=== PATIENT | female | born 1995 | race Caucasian/White ===

== ENCOUNTER 2017-12-03 23:31 | Emergency (ER) | payer OTHER ==
[2017-12-03 23:39] VITALS: BP 149/86; PULSE 50; TEMP 98.6; BMI 25.2
[2017-12-03] MEDS ORDERED: SODIUM CHLORIDE 1,000 ML IV STA (23:57)
[2017-12-03] MEDS ORDERED: PANTOPRAZOLE SODIUM 40 MG VIAL IVPUSH ONE (23:57)
--- NOTE | 2017-12-04 00:05 | PDOC ---
History of Present Illness - General Chief Complaint: Pain Stated Complaint: ABD PAIN Time Seen by Provider: 12/03/17 23:47 History Source: Patient Exam Limitations: No Limitations - History of Present Illness Travel History: No Initial Comments: 12/04/17 00:00 22yo Female patient with no significant past medical history presents to ED c/o abdominal pain. Patient states symptoms began 4-5 days ago and is located epigastric that radiates to her upper back. She denies vomiting but report nausea and retching. Associated decrease appetite. LNMP: 1 week ago. She denies any other complaints at this time. Timing/Duration: reports: getting worse Quality: reports: sharpness, other ("comes in waves") Abdominal Pain Onset Location: reports: epigastric. denies: RUQ, LUQ, RLQ, LLQ , periumbilical, suprapubic, generalized abdomen, flank, unknown, other Pain Radiation: reports: back. denies: no radiation, RUQ, LUQ, RLQ, LLQ, epigastric, periumbilical, flank, groin, scapula, shoulder, chest, other Activities at Onset: reports: no specific activity Treatment Prior to Arrive: worse with: analgesics, antacids, cold pack, heat, laxative, enema, other Past History - Travel Traveled outside of the country in the last 30 days: No Close contact w/someone who was outside of country & ill: No - Past Medical History Allergies/Adverse Reactions: Allergies Allergy/AdvReac Type Severity Reaction Status Date / Time No Known Allergies Allergy Verified 12/03/17 23:36 Home Medications: Ambulatory Orders Metronidazole [Flagyl -] 500 mg PO BID #14 tablet 12/04/17 Oxycodone HCl/Acetaminophen [Percocet 5-325 mg Tablet] 1 tab PO Q6H PRN #8 tablet MDD 4 tabs 12/04/17 Ranitidine HCl 300 mg PO DAILY #14 capsule 12/04/17 - Suicide/Smoking/Psychosocial Hx Smoking History: Current every day smoker Number of Cigarettes Smoked Daily: 2 Information on smoking cessation initiated: No Abd/GI Specific PMHX - Complaint Specific PMHX Colitis: No Diverticulitis: No Gall Bladder Disease: No GERD: No Hepatitis: No Irritable Bowel Synd (IBS): No Pancreatitis: No GI Ulcer Disease: No Review of Systems - Review of Systems Able to Perform ROS?: Yes Is the patient limited [place] proficient: No Constitutional: No: Chills, Fever, Weakness Respiratory: No: Cough, Shortness of Breath, Wheezing, Productive cough Cardiac (ROS): No: Chest Pain ABD/GI: Yes: Nausea, Poor Appetite, Abdominal cramping. No: Blood Streaked Bowels, Diarrhea, Poor Fluid Intake, Vomiting : No: Burning, Dysuria, Flank Pain, Hematuria Musculoskeletal: Yes: Back Pain All Other Systems: Reviewed and Negative *Physical Exam - Vital Signs Last Vital Signs Temp Pulse Resp BP Pulse Ox 98.6 F 50 L 18 149/86 99 12/03/17 23:36 12/03/17 23:36 12/03/17 23:36 12/03/17 23:36 12/03/17 23:36 - Physical Exam General Appearance: Yes: Nourished, Appropriately Dressed. No: Apparent Distress, Mild Distress, Moderate Distress, Severe Distress Neck: positive: Trachea midline, Normal Thyroid, Supple. negative: Lymphadenopathy (R), Lymphadenopathy (L) Respiratory/Chest: positive: Lungs Clear, Normal Breath Sounds. negative: Chest Tender, Respiratory Distress, Accessory Muscle Use, Labored Respiration, Rapid RR, Rhonchi, Stridor, Wheezing Cardiovascular: positive: Regular Rhythm, Regular Rate Gastrointestinal/Abdominal: positive: Soft, Decreased BS. negative: Normal Bowel Sounds, Tender, Flat, Pulsatile Mass, Increased Bowel Sounds, Distended, Guarding, Rebound, Tenderness Musculoskeletal: positive: Normal Inspection. negative: CVA Tenderness, Decreased Range of Motion, Vertebral Tenderness Extremity: positive: Normal Capillary Refill, Normal Inspection, Normal Range of Motion. negative: Pedal Edema, Swelling, Calf Tenderness, Erythema Integumentary: positive: Normal Color, Dry, Warm Neurologic: positive: gear shaper II-XII NML intact, Fully Oriented, Alert, Normal Mood/ Affect, Normal Response, Motor Strength 5/5 ED Treatment Course - LABORATORY CBC & Chemistry Diagram: 12/04/17 00:33 12/04/17 00:33 - RADIOLOGY Radiology Studies Ordered: Category Date Time Status GALLBLADDER US [US] Stat Ultrasound 12/03/17 23:57 Ordered Medical Decision Making - Medical Decision Making 12/04/17 03:18 WBC- 10.3 Ultrasound of GB- Normal CT-ABD/Pelvis- WNL ??? Infection. Plan: d/c to home on flagyl and 2 days of pain control. f/u with PCP and GI specialist. *DC/Admit/Observation/Transfer Diagnosis at time of Disposition: Enteritis - Discharge Dispostion Disposition: HOME Condition at time of disposition: Stable Admit: No - Prescriptions Prescriptions: Metronidazole [Flagyl -] 500 mg PO BID #14 tablet Oxycodone HCl/Acetaminophen [Percocet 5-325 mg Tablet] 1 tab PO Q6H PRN #8 tablet MDD 4 tabs PRN Reason: Severe Pain Ranitidine HCl 300 mg PO DAILY #14 capsule - Referrals Referrals: Fco Kasper MD [Staff Physician] - - Patient Instructions Printed Discharge Instructions: Inflammatory Bowel Disease Additional Instructions: Follow up with Dr. Kasper (Gastroenterology) regarding todays visit. Take medications as prescribed with food. Do not drive, drink alcohol, or operate heavy machinery while taking Percocet. Drink plenty water. Return if your symptoms worsen or any concerns for further evaluation. You must call Dr. Kasper to schedule your own appointment. Print Language: DIVEHI - Post Discharge Activity
[2017-12-04 00:44] LABS: BASO % 0.6 % (0-2.0); HEMOGLOBIN 14.2 GM/dL (10.7-15.3); MCH 26.7 pg (25.7-33.7); MEAN CELL VOLUME 80.9 fl (80-96); MEAN PLT VOLUME 8.4 fl (7.5-11.1); MONO % 7.6 % (3.8-10.2); NEUT % 56.8 % (42.8-82.8); PLATELET COUNT 315 K/MM3 (134-434); RBC 5.32 M/mm3 (3.60-5.2); RDW 14.3 % (11.6-15.6); WHITE BLOOD COUNT 10.3 K/mm3 (4.0-10.0)
[2017-12-04] MEDS ORDERED: PANTOPRAZOLE SODIUM 40 MG VIAL ONE (01:07)
[2017-12-04 01:19] LABS: URINE APPEARANCE CLEAR; URINE BILIRUBIN NEGATIVE (NEGATIVE); URINE BLOOD NEGATIVE (NEGATIVE); URINE COLOR STRAW; URINE GLUCOSE (UA) NEGATIVE (NEGATIVE); URINE KETONE NEGATIVE (NEGATIVE); URINE LEUK ESTERASE NEGATIVE (NEGATIVE); URINE NITRITE NEGATIVE (NEGATIVE); URINE PROTEIN NEGATIVE (NEGATIVE); URINE UROBILINOGEN NEGATIVE mg/dL (0.2-1.0)
[2017-12-04 01:21] LABS: ALBUMIN 3.7 g/dl (3.4-5.0); AMYLASE 47 U/L (25-115); ANION GAP 6 (8-16); BLOOD UREA NITROGEN 13 mg/dL (7-18); CALCIUM 9.5 mg/dL (8.5-10.1); CHLORIDE 106 mmol/L (98-107); CO2 26 mmol/L (21-32); CREATININE 0.6 mg/dL (0.55-1.02); GLUCOSE,RANDOM 91 mg/dL (74-106); POTASSIUM 4.1 mmol/L (3.5-5.1); SGOT/AST 10 U/L (15-37); SGPT/ALT 23 U/L (12-78); SODIUM 138 mmol/L (136-145)
[2017-12-04 01:23] LABS: ALK PHOS 46 U/L (45-117); BILIRUBIN,TOTAL 0.3 mg/dL (0.2-1.0); TOT PROT 7.2 g/dl (6.4-8.2)
[2017-12-04 01:25] LABS: LIPASE 204 U/L (73-393)
[2017-12-04 02:05] LABS: HCG,QUALITATIVE URINE NEGATIVE
[2017-12-04] MEDS ORDERED: ONDANSETRON 4 MG/2 ML VIAL IVPUSH ONE (02:39)
[2017-12-04] MEDS ORDERED: morphine CARPU-JECT 2 MG/1 ML DISP.SYRIN IVPUSH ONE (02:39)
[2017-12-04] MEDS ORDERED: ONDANSETRON 4 MG/2 ML VIAL ONE (02:50)
[2017-12-04] MEDS ORDERED: morphine CARPU-JECT 10 MG/1 ML DISP.SYRIN ONE (02:52)
== END 2017-12-04 03:41 | disposition home or self-care (01) ==
LOC: JER 23:31
PROC: 3E033NZ Introduction of Analgesics, Hypnotics, Sedatives into Peripheral Vein, Percutaneous Approach (ICD-10-PCS; principal; 2017-12-03)
PROC: 3E033GC Introduction of Other Therapeutic Substance into Peripheral Vein, Percutaneous Approach (ICD-10-PCS; 2017-12-03)
PROC: 3E033GC Introduction of Other Therapeutic Substance into Peripheral Vein, Percutaneous Approach (ICD-10-PCS; 2017-12-03)
DX: K52.9 Noninfective gastroenteritis and colitis, unspecified (principal)
CPT/HCPCS: 36415; 74177-TC; 76705-TC; 80053; 81003; 82150; 83690; 84703; 85025; 99282-25